=== PATIENT | female | born 1995 | race African-American/Black ===

== ENCOUNTER 2019-05-16 12:07 | Emergency (ER) | payer MEDICAID ==
[~2019-05-16] VITALS: Ht 162.6 cm; Wt 91.0 kg
[2019-05-16 12:29] VITALS: BP 147/83
[2019-05-16] MEDS ORDERED: OXYCODONE HCL/ACETAMINOPHEN 5/325MG TABLET PO ONE (13:15)
[2019-05-16] MEDS ORDERED: KETOROLAC 60MG/2ML VIAL IM ONE (13:15)
== END 2019-05-16 14:35 | disposition home or self-care (01) ==
LOC: ER 12:27
DX: J45.909 Unspecified asthma, uncomplicated (principal); M77.11 Lateral epicondylitis, right elbow
CPT/HCPCS: 29125; 73090; 73100; 96372; 99283; J1885